=== PATIENT | female | born 1945 | race Caucasian/White ===

== ENCOUNTER 2022-08-04 01:27 | Emergency (ER) | payer MEDICARE ==
[2022-08-04 01:48] LABS: Hemoglobin 13.5 g/dL (12.0-16.0)
[2022-08-04] MEDS ORDERED: Lidocaine 1%/Epinephrine 1:100K 10 ML VIAL ONE (01:59)
[2022-08-04] MEDS ORDERED: Bacitracin 1 PK ONE (02:04)
[2022-08-04] MEDS ORDERED: Tranexamic Acid 1,000 MG/10 ML VIAL ONE (02:13)
[2022-08-04] MEDS ORDERED: Acetaminophen 500 MG TAB ONE (03:27)
[2022-08-04 03:30] LABS: Hemoglobin 11.7 g/dL (12.0-16.0)
[2022-08-04 05:09] LABS: Hemoglobin 11.3 g/dL (12.0-16.0)
== END 2022-08-04 05:17 | disposition home or self-care (01) ==
LOC: MADERS 01:27
DX: S05.42XA Penetrating wound of orbit with or without foreign body, left eye, initial encounter (principal); S41.012A Laceration without foreign body of left shoulder, initial encounter; S51.012A Laceration without foreign body of left elbow, initial encounter; S80.212A Abrasion, left knee, initial encounter; S80.211A Abrasion, right knee, initial encounter; M06.9 Rheumatoid arthritis, unspecified; J43.9 Emphysema, unspecified; F17.200 Nicotine dependence, unspecified, uncomplicated; W18.30XA Fall on same level, unspecified, initial encounter; Y93.01 Activity, walking, marching and hiking; Z79.899 Other long term (current) drug therapy
CPT/HCPCS: 12004; 12013; 36416; 70450; 70486; 72125; 85014; 85018

== ENCOUNTER 2023-01-05 14:10 | Emergency (ER) | payer MEDICARE ==
[~2023-01-05 14:10] MED LIST: Iopamidol 370 76% 100 ML VIAL ONE
[2023-01-05] MEDS ORDERED: Sodium Chloride 0.9% 1,000 ML ONE (14:27)
[2023-01-05] MEDS ORDERED: Ondansetron PF 4 MG/2 ML Vial ONE (14:27)
[2023-01-05] MEDS ORDERED: Acetaminophen 500 MG TAB ONE (14:27)
[2023-01-05] MEDS ORDERED: Ipratropium/Albuterol 3 ML NEB ONE (14:27)
[2023-01-05 15:19] LABS: SARS-CoV-2 NAA Rapid Test Not Detected (NotDetected)
[2023-01-05 15:23] LABS: Hemoglobin 13.5 g/dL (12.0-16.0); Mean Corpuscular HGB CONC 34.3 g/dL (32.0-36.0); Mean Corpuscular Volume 90.4 fl (78.0-98.0); Mean Platelet Volume 6.4 fL (7.4-10.4); Platelet Count 238 10x3/uL (130-400); RBC Distribution Width 14.4 % (11.5-14.5); Red Blood Cell (RBC) Count 4.35 mill/uL (4.20-5.40)
[2023-01-05 15:26] LABS: Prothrombin Time 13.1 sec (12.0-14.7)
[2023-01-05] MEDS ORDERED: Oseltamivir 75 MG CAP ONE (15:28)
[2023-01-05 15:41] LABS: ALT (SGPT) 15 U/L (8-55); AST (SGOT) 22 U/L (5-34); Albumin 3.9 g/dL (3.4-4.8); Alkaline Phosphatase 63 U/L (40-110); Anion Gap 11 mmol/L (10-20); BUN (Urea Nitrogen) 10 mg/dL (9.8-20.1); Bilirubin, Total 0.8 mg/dL (0.2-1.2); Calc. Creatinine Clearance 0 mL/min (70-130); Calcium 9.2 mg/dL (7.8-10.44); Carbon Dioxide 28 mmol/L (23-31); Chloride 103 mmol/L (98-107); Estimated GFR 90; Globulin 2.8 g/dL (2.4-3.5); Glucose 94 mg/dL (83-110); Protein, Total 6.7 g/dL (5.8-8.1); Sodium 138 mmol/L (136-145)
[2023-01-05 16:05] LABS: Band 4 % (5-11); Lymphocytes 7 % (21-51); MDiff Complete? YES; Monocytes 4 % (0-10); Neutrophil 85 % (42-75); Platelet Morphology Comment Appears Adequate; RBC Morphology Normal
[2023-01-05] MEDS ORDERED: cefTRIAXone\\ROCEPHIN 2 GM VIAL ONE (18:11)
[2023-01-05] MEDS ORDERED: methylPREDNISolone Sod Succ/PF 125 MG/2 ML VIAL ONE (18:11)
[2023-01-05] MEDS ORDERED: Sodium Chloride 0.9% 250 ML 250 ML ONE (18:11)
[2023-01-05] MEDS ORDERED: Azithromycin 500 MG VIAL ONE (18:11)
[2023-01-05] MEDS ORDERED: Sodium Chloride 0.9% 100 ML ONE (18:11)
[2023-01-05 18:20] LABS: Bilirubin Negative (Negative); Blood, Urine Negative (Negative); Clarity Clear (Clear); Glucose, Urine (Dipstick) Negative (Negative); Ketone, Urine 80 mg/dL (Negative); Leukocyte Negative (Negative); Nitrite Negative (Negative); Protein, Urine (Dipstick) Negative (Neg-Trace); Urobilinogen 0.2 mg/dL (Less than 2); pH, Urine 5.5 (5.0-9.0)
[2023-01-05 18:23] LABS: Specific Gravity, Urine 1.003 (1.002-1.036)
== END 2023-01-05 19:54 | disposition short-term general hospital (02) ==
LOC: MADERS 14:10
DX: J18.9 Pneumonia, unspecified organism (principal); J96.20 Acute and chronic respiratory failure, unspecified whether with hypoxia or hypercapnia; J10.1 Influenza due to other identified influenza virus with other respiratory manifestations; Z20.822 Contact with and (suspected) exposure to COVID-19; E03.9 Hypothyroidism, unspecified; J44.9 Chronic obstructive pulmonary disease, unspecified; F17.210 Nicotine dependence, cigarettes, uncomplicated; Z79.899 Other long term (current) drug therapy
CPT/HCPCS: 71045; 71260; 80053; 81003; 83605; 84484; 85025; 85610; 85730; 86140; 87040; 87804; 96365; 96375; J0456; J0696; J2405; J2930; J3490; J7050; J7620; Q9967; U0002

== ENCOUNTER 2023-02-08 11:48 | Emergency (ER) | payer MEDICARE ==
[2023-02-08] MEDS ORDERED: Cyclobenzaprine 10 MG TAB ONE (12:24)
== END 2023-02-08 13:20 | disposition home or self-care (01) ==
LOC: MADERS 11:48
DX: S32.038A Other fracture of third lumbar vertebra, initial encounter for closed fracture (principal); S32.048A Other fracture of fourth lumbar vertebra, initial encounter for closed fracture; E03.9 Hypothyroidism, unspecified; J44.9 Chronic obstructive pulmonary disease, unspecified; F17.210 Nicotine dependence, cigarettes, uncomplicated; W22.8XXA Striking against or struck by other objects, initial encounter
CPT/HCPCS: 72131